=== PATIENT | female | born 1980 | race Hispanic/Latino ===

== ENCOUNTER 2018-10-15 15:30 | Emergency (ER) | payer SELFPAY ==
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
== END 2018-10-15 19:00 | disposition left against medical advice (07) ==
LOC: ED 15:30
CPT/HCPCS: 99282